=== PATIENT | male | born 1965 | race Caucasian/White ===

== ENCOUNTER 2018-04-29 19:35 | Emergency (ER) | payer OTHER ==
[~2018-04-29] VITALS: Ht 172.7 cm; Wt 90.7 kg
--- OUTSIDE RECORDS SUMMARY | 2018-04-29 19:38 | XMS REPORT | Continuity of Care Document ---
Author Author [facility] Interface Address Unknown Phone Unavailable Problems Problem Status Onset Date Classification Date Reported Comments Source Upper respiratory infection 01/14/2017 Diagnosis 01/15/2017 [facility] Pain in throat 01/14/2017 Diagnosis 01/15/2017 [facility] Feeling feverish 01/14/2017 Diagnosis 01/15/2017 [facility] Generalized aches and pains 01/14/2017 Diagnosis 01/15/2017 [facility] Chill 01/14/2017 Diagnosis 01/15/2017 [facility] Cigarette smoker 01/14/2017 Diagnosis 01/15/2017 [facility] Candidiasis Problem 01/15/2017 [facility] Otitis Media Problem 01/15/2017 [facility] Influenza Due to Influenza Virus, Type B Problem 01/15/2017 [facility] Cellulitis and Abscess of Face Problem 01/15/2017 [facility] Medications Medication Details Route Status Patient Instructions Ordering Provider Order Date Source Amitriptyline Hydrochloride 50 MG Oral Tablet amitriptyline 50 mg tablet Active [facility] Amoxicillin 875 MG Oral Tablet amoxicillin 875 mg tablet Take 1 tablet every 12 hours by oral route as directed for 10 days. Active [facility] atorvastatin 40 MG Oral Tablet atorvastatin 40 mg tablet Active [facility] BD Ultra-Fine Karen Pen [place] 32 gauge x 5/32" BD Ultra- Fine Karen Pen [place] 32 gauge x 5/32" Active [facility] benzonatate 200 MG Oral Capsule benzonatate 200 mg capsule Take 1 capsule 3 times a day by oral route as needed. Active [facility] duloxetine 60 MG Delayed Release Oral Capsule duloxetine 60 mg capsule,delayed release TK 1 C PO D Active [facility] 0.5 ML influenza A virus A/ (H1N1) antigen 0.03 MG/ML / influenza A virus A/ (H3N2) antigen 0.03 MG/ML / influenza B virus B/Servin antigen 0.03 MG/ML / influenza B virus B/ antigen 0.03 MG/ML Prefilled Syringe [Flucelvax Quadrivalent 2565-0298] Flucelvax Quad 5584-9524 (PF) 60 mcg (15 mcg x 4)/0.5 mL IM syringe ADM 0.5ML IM UTD Active [facility] gabapentin 800 MG Oral Tablet gabapentin 800 mg tablet Active [facility] empagliflozin 25 MG Oral Tablet [Jardiance] Jardiance 25 mg tablet Active [facility] Lidocaine Hydrochloride 20 MG/ML Mucous Membrane Topical Solution Lidocaine Viscous 2 % mucosal solution Take 10 mL every 3 hours by oral route as needed. Active [facility] 24 HR Metformin hydrochloride 500 MG Extended Release Oral Tablet metformin ER 500 mg tablet,extended release 24 hr Active [facility] OneTouch Delica Lancets 30 gauge OneTouch Delica Lancets 30 gauge Active [facility] OneTouch Verio strips OneTouch Verio strips Active [facility] Prednisone 20 MG Oral Tablet prednisone 20 mg tablet Take 3 tabs PO QD x 2 days, then take 2 tabs PO QD x 2 days, then take 1 tab PO QD x 2 days. Active [facility] 1.5 ML Insulin Glargine 300 UNT/ML Pen Injector [Toujeo] Toujeo SoloStar 300 unit/mL (1.5 mL) subcutaneous insulin pen INJ 30 UNITS SC QHS Active [facility] Allergies, Adverse Reactions, Alerts Substance Category Reaction Severity Reaction type Status Date Reported Comments Source Immunizations Immunization Date Given Site Status Last Updated Comments Source influenza, unspecified formulation 12/08/2016 completed [facility] Results Order Name Results Value Reference Range Date Interpretation Comments Source RESULT negative 01/14/2017 [facility] SWAB LOCATION Left and Right tonsillar pillars 01/14/2017 [facility] Influenza A negative 01/14/2017 [facility] Influenza B negative 01/14/2017 [facility] Vital Signs Vital Sign Value Date Comments Source Diastolic (mm Hg) 84 01/14/2017 [facility] Height 68 01/14/2017 [facility] Systolic (mm Hg) 120 01/14/2017 [facility] Weight 205 01/14/2017 [facility] Encounters Location Location Details Encounter Type Encounter Number Reason For Visit Attending Provider ADM Date DC Date Status Source [place] - [facility] - [id number]: [address] [place] [address], Ph. [id number] [place] 01/14/2017 [facility] Procedures Procedure Code Date Perfomer Comments Source Cholecystectomy [facility] Appendectomy [facility] Remove Tonsils and Adenoids [address] [facility]
--- OUTSIDE RECORDS SUMMARY | 2018-04-29 19:39 | XMS REPORT | Encounter Summary ---
Author Organization Unknown Address [address] [place] [address] Phone [phone] Reason for Visit Medical Complaint Instructions 1. Upper respiratory infection rapid flu (A+B) benzonatate 200 mg capsule prednisone 20 mg tablet upper respiratory infection (cold): care instructions amoxicillin 875 mg tablet 2. Pain in throat sore throat: care instructions Lidocaine Viscous 2 % mucosal solution rapid strep group A, throat 3. Feeling feverish 4. Generalized aches and pains 5. Chill 6. Cigarette smoker Discussion Note Pt is in NAD; Verbalizes understanding of all instructions with no questions at this time. Plan of Care Patient Instructions Take fluticasone as needed for congestion. [place] one spray in each nostril twice a day. Take a warm, steamy shower, blow your nose thereafter, and spray in each nostril. Tilt your head up for about 10 seconds and breath through your mouth. Do not sniff or snort the medication in or else the medication will go to your throat and not be absorbed appropriately. Gargle and spit viscous lidocaine as needed for sore throat as directed. Take benzonatate for cough as directed. Take prednisone taper as directed with food. If no improvement of symptoms, start antibiotics as directed. Alternate with Ibuprofen and acetaminophen every 4hrs as needed for pain/fever/headache. Proper hydration and rest. Return to work/school if free of fever for 24-hrs. Do not share any utensils/cups, no kissing, recommend hand washing after coughing/sneezing/blowing nose and cover face when you do so Take medications as prescribed. Return to clinic or follow up with your PCP within 2-3 days if symptoms worsen as discussed. I recommend smoking cessation. Reminders Provider Appointments None recorded. Lab Rapid Flu (A+B) 01/14/2017 [facility] Rapid Strep Group a, Throat 01/14/2017 [facility] Referral None recorded. Procedures None recorded. Surgeries None recorded. Imaging None recorded. Medications Name Start Date amitriptyline 50 mg tablet amoxicillin 875 mg tablet Take 1 tablet every 12 hours by oral route as directed for 10 days. atorvastatin 40 mg tablet BD Ultra-Fine Karen Pen [place] 32 gauge x 5/32" benzonatate 200 mg capsule Take 1 capsule 3 times a day by oral route as needed. duloxetine 60 mg capsule,delayed release TK 1 C PO D Flucelvax Quad 4185-1660 (PF) 60 mcg (15 mcg x 4)/0.5 mL IM syringe ADM 0.5ML IM UTD gabapentin 800 mg tablet Jardiance 25 mg tablet Lidocaine Viscous 2 % mucosal solution Take 10 mL every 3 hours by oral route as needed. metformin ER 500 mg tablet,extended release 24 hr OneTouch Delica Lancets 30 gauge OneTouch Verio strips prednisone 20 mg tablet Take 3 tabs PO QD x 2 days, then take 2 tabs PO QD x 2 days, then take 1 tab PO QD x 2 days. Toujeo SoloStar 300 unit/mL (1.5 mL) subcutaneous insulin pen INJ 30 UNITS SC QHS Medications Administered None recorded. Vitals Height Weight BMI Blood Pressure 5 ft 8 in 205 lbs 31.2 kg/m2 120/84 mm[Hg] Lab Results Date Name Specimen Result Interpretation Description Value Range Status Address Rapid Strep Group a, Throat Result negative [facility]: [address] [place] [address] Swab Location Left and Right tonsillar pillars [facility]: [address] [place] [address] Rapid Flu (A+B) Influenza a negative [facility]: [address] [place] [address] Influenza B negative [facility]: [address] [place] [address] Allergies Code Code System Name Reaction Severity Status Onset NKDA Problems Name Status Onset Date Source Candidiasis Active Encounter Otitis Media Active Encounter Influenza Due to Influenza Virus, Type B Active Encounter Cellulitis and Abscess of Face Active Encounter Procedures Date Name Performed by Cholecystectomy Information not available Appendectomy Information not available Remove Tonsils and Adenoids Information not available Vaccine List Vaccine Type influenza, unspecified formulation 12/08/2016 Social History Smoking Status Current Every Day Smoker Past Encounters 01/14/2017 Upper Respiratory Infection; Pain in Throat; Feeling Feverish; Generalized Aches and Pains; Chill; Cigarette Smoker [place], [facility]: [address] [facility], [place] [address], Ph. History of Present Illness [id number] Reported By: Patient HPI: Quality: symptoms worse during the day. Duration: 2 days. Severity: subjective temperature. Context: no ill contacts, no tick/insect bites, no recent travel, no new medications; cigarette smoker. Associated Symptoms: no fever/chills, no headache, no muscle aches, no rash, no lethargy, cough; sore throat, feeling feverish, chills, and body aches. Modifying Factors nothing gives relief Review of Systems:ROS as noted in the HPI Review of Systems Basic Reported By: Patient Physical Exam Adult Basic, Adult Female Complete, Adult Male Complete Reported By: Patient Constitutional: General Appearance: healthy-appearing, well-nourished, well-developed. Level of Distress: NAD. Ambulation: ambulating normally Psychiatric: Mental Status: active and alert. Orientation: to time, to place, to person Mxu-Bfgl-Dnand-Throat: Ears: no lesions on external ear, no outer ear tenderness, EACs clear, TMs clear. Hearing: no hearing loss. Nose: no lesions on external nose, nares patent, no septal deviation, nasal passages clear, no sinus tenderness, nasal discharge--rhinorrhea, post nasal drip. Lips, Teeth, and Gums: no mouth or lip ulcers, no bleeding gums, normal dentition. Oropharynx: moist mucous membranes, no erythema, no exudates, tonsils absent Neck: Lymph Nodes: no cervical LAD Lungs: Respiratory effort: no dyspnea, no tachypnea, no use of accessory muscles, no intercostal retractions. Auscultation: breath sounds normal Cardiovascular: Heart Auscultation: RRR, no murmurs Neurologic: Gait and Station: normal gait, normal station
[2018-04-29] MEDS ORDERED: CLINDAMYCIN PHOS 600 MG/ 4 ML VIAL IM ONE (20:15)
== END 2018-04-29 20:20 | disposition home or self-care (01) ==
LOC: FSED 19:35
DX: L03.113 Cellulitis of right upper limb (principal); F17.210 Nicotine dependence, cigarettes, uncomplicated
CPT/HCPCS: 99282

== ENCOUNTER 2019-08-28 20:17 | Emergency (ER) | payer OTHER ==
[~2019-08-28] VITALS: Ht 172.7 cm; Wt 90.7 kg
[2019-08-28] MEDS ORDERED: CLINDAMYCIN PHOS 900MG/ 50ML 50 ML IV STA (21:27)
[2019-08-28] MEDS ORDERED: KETOROLAC TROMETHAMINE 30 MG/ML VIAL IV STA (21:27)
[2019-08-28 21:41] LABS: BASOPHILS % 0.5 % (0.0-1.0); EOSINOPHILS # (AUTO) 0.1 (0.0-0.4); EOSINOPHILS % 1.5 % (0.0-6.0); HEMATOCRIT 48.3 % (38.2-49.6); HEMOGLOBIN 16.3 g/dL (14.0-18.0); LYMPHOCYTES # (AUTO) 3.5 (1.0-3.2); LYMPHOCYTES % 40.1 % (18.0-39.1); MEAN CORPUSCULAR HEMOGLOBIN 30.6 pg (28-32); MEAN CORPUSCULAR HGB CONC 33.7 g/dL (31-35); MEAN CORPUSCULAR VOLUME 90.6 fL (81-99); MONOCYTES # (AUTO) 0.6 (0.2-0.8); MONOCYTES % 6.4 % (4.4-11.3); NEUTROPHILS # (AUTO) 4.4 (2.1-6.9); NEUTROPHILS % 51.3 % (38.7-80.0); PLATELET COUNT 148 x10e3/uL (140-360); RED BLOOD COUNT 5.33 x10e6/uL (4.3-5.7); RED CELL DISTRIBUTION WIDTH 12.3 % (11.7-14.4)
[2019-08-28 21:45] LABS: AMPHETAMINES SCREEN,URINE NEGATIVE (NEGATIVE); BENZODIAZEPINES SCREEN,URINE NEGATIVE (NEGATIVE); PHENCYCLIDINE SCREEN,URINE NEGATIVE (NEGATIVE)
[2019-08-28 21:59] LABS: ALANINE AMINOTRANSFERASE 13 IU/L (0-55); ALBUMIN 3.8 g/dL (3.5-5.0); ALBUMIN/GLOBULIN RATIO 1.2 (0.8-2.0); ALKALINE PHOSPHATASE 123 IU/L (40-150); ANION GAP 9.7 mmol/L (8-16); BLOOD UREA NITROGEN 8 mg/dL (7-26); BUN/CREATININE RATIO 9 (6-25); CALCIUM 9.6 mg/dL (8.4-10.2); CARBON DIOXIDE 29 mmol/L (22-29); CHLORIDE 100 mmol/L (98-107); CREATININE, SERUM 0.86 mg/dL (0.72-1.25); EST GLOMERULAR FILTRATION RATE > 60 ML/MIN (60-); GLUCOSE 371 mg/dL (74-118); POTASSIUM 4.7 mmol/L (3.5-5.1); SODIUM 134 mmol/L (136-145)
--- NOTE | 2019-08-28 22:11 | Diagnostic Imaging Report ---
Exam: Left foot series, 3 views. Clinical History: Pain and swelling, predominantly in the first toe, no trauma Comparison: None. Findings: 3 views of the left foot. There is normal bone mineralization. Negative for acute, displaced fracture or dislocation. Mild hallux valgus deformity at the first metatarsophalangeal joint. Large anterior and posterior calcaneal enthesophytes. No significant soft tissue swelling. Impression: 1. No acute abnormalities. 2. Mild hallux valgus deformity. 3. Large anterior and posterior calcaneal enthesophytes. Signed by: Dr. Chay Simpson M.D. on 08/28/2019 10:07 PM
--- NOTE | 2019-08-28 22:12 | Diagnostic Imaging Report ---
Exam: Left Ankle Series. History: Swelling and pain, no trauma Comparison: None. DISCUSSION: 3 views of the left ankle. There is normal bone mineralization. No evidence of acute, displaced fracture or dislocation. Ankle mortise is preserved. No lytic or blastic lesion.No osteochondral lesion. No abnormal soft tissue calcification or mass. No significant soft tissue swelling. Large anterior and posterior calcaneal enthesophytes. IMPRESSION: 1. No acute abnormalities. The staff physician below has personally reviewed this exam on the date of dictation. Signed by: Dr. Chay Simpson M.D. on 08/28/2019 10:08 PM
[2019-08-28] MEDS ORDERED: ULTRAM50 MG PO (23:53)
--- NOTE | 2019-08-29 00:04 | Emergency Department Note ---
History of Present Illnes History of Present Illness Chief Complaint: Extremity Trauma/Pain History of Present Illness This is a 54 year old male arrives to the ED complaining of left foot pain and redness. Patient states it has been present for 5 weeks-has been constant but it started getting the run around and decided to come to the ED for further workup.She admits to seeing a sports lawyer as an outpatient. Historian: Patient Arrival Mode: Car Exterminator Termite Required: No Onset (how long ago): week(s) Severity: mild Duration (how long): week(s) Progression: unchanged Chronicity: recurrent Context: Denies trauma/injury Past Medical/Family History Physician Review I have reviewed the patient's past medical and family history. Any updates have been documented here. Past Medical History Recent Fever: No Clinical Suspicion of Infectio: No New/Unexplained Change in Ment: No Past Medical History: Diabetes Past Surgical History: Cholecysctectomy, Appendectomy, T&A Family History Family history of heart diseas: No Other Last Tetanus: UTD Review of Systems Review of Systems Constitutional: Reports no symptoms EENTM: Reports no symptoms Cardiovascular: Reports no symptoms Respiratory: Reports no symptoms Gastrointestinal: Reports no symptoms Genitourinary: Reports no symptoms Musculoskeletal: Reports as per HPI, Reports joint pain Integumentary: Reports no symptoms Neurological: Reports no symptoms Psychological: Reports no symptoms Endocrine: Reports no symptoms Hematological/Lymphatic: Reports no symptoms Physical Exam Related Data Allergies: Coded Allergies: No Known Allergies (Unverified , 04/29/18) Triage Vital Signs Vital Signs Date Time Temp Pulse Resp B/P (MAP) Pulse Ox O2 Delivery O2 Flow Rate FiO2 08/28/19 21:09 98.4 92 18 105/82 98 Vital signs reviewed: Yes Physical Exam CONSTITUTIONAL Constitutional: Present well-developed, Present well-nourished HENT HENT: Present normocephalic, Present atraumatic, Present oropharynx clear/moist, Present nose normal HENT L/R: Present left ext ear normal, Present right ext ear normal EYES Eyes: Reports PERRL, Reports conjunctivae normal NECK Neck: Present ROM normal PULMONARY Pulmonary: Present effort normal, Present breath sounds normal CARDIOVASCULAR Cardiovascular: Present regular rhythm, Present heart sounds normal, Present capillary refill normal, Present normal rate GASTROINTESTINAL Abdominal: Present soft, Present nontender, Present bowel sounds normal GENITOURINARY Genitourinary: Present exam deferred SKIN Skin: Present warm, Present dry MUSCULOSKELETAL Musculoskeletal: Present ROM normal, Present tenderness, Present swelling NEUROLOGICAL Neurological: Present alert, Present oriented x 3, Present no gross motor or sensory deficits PSYCHOLOGICAL Psychological: Present mood/affect normal, Present judgement normal Results Laboratory Result Diagram: 08/28/19212008/28/192120 Laboratory Laboratory Tests Test 08/28/19 21:25 08/28/19 21:21 Urine Opiates Screen Negative (NEGATIVE) Urine Methadone Screen Negative (NEGATIVE) Urine Barbiturates Screen Negative (NEGATIVE) Urine Phencyclidine Screen Negative (NEGATIVE) Urine Amphetamines Screen Negative (NEGATIVE) Urine Methamphetamines Screen Negative (NEGATIVE) Urine Benzodiazepines Screen Negative (NEGATIVE) Urine Cocaine Screen Negative (NEGATIVE) Urine Cannabinoids Screen Negative (NEGATIVE) White Blood Count 8.60 x10e3/uL (4.8-10.8) Red Blood Count 5.33 x10e6/uL (4.3-5.7) Hemoglobin 16.3 g/dL (14.0-18.0) Hematocrit 48.3 % (38.2-49.6) Mean Corpuscular Volume 90.6 fL (81-99) Mean Corpuscular Hemoglobin 30.6 pg (28-32) Mean Corpuscular Hemoglobin Concent 33.7 g/dL (31-35) Red Cell Distribution Width 12.3 % (11.7-14.4) Platelet Count 148 x10e3/uL (140-360) Neutrophils (%) (Auto) 51.3 % (38.7-80.0) Lymphocytes (%) (Auto) 40.1 % (18.0-39.1) Monocytes (%) (Auto) 6.4 % (4.4-11.3) Eosinophils (%) (Auto) 1.5 % (0.0-6.0) Basophils (%) (Auto) 0.5 % (0.0-1.0) Neutrophils # (Auto) 4.4 (2.1-6.9) Lymphocytes # (Auto) 3.5 (1.0-3.2) Monocytes # (Auto) 0.6 (0.2-0.8) Eosinophils # (Auto) 0.1 (0.0-0.4) Basophils # (Auto) 0.0 (0.0-0.1) Absolute Immature Granulocyte (auto 0.02 x10e3/uL (0-0.1) Sodium Level 134 mmol/L (136-145) Potassium Level 4.7 mmol/L (3.5-5.1) Chloride Level 100 mmol/L (98-107) Carbon Dioxide Level 29 mmol/L (22-29) Anion Gap 9.7 mmol/L (8-16) Blood Urea Nitrogen 8 mg/dL (7-26) Creatinine 0.86 mg/dL (0.72-1.25) Estimat Glomerular Filtration Rate > 60 ML/MIN (60-) BUN/Creatinine Ratio 9 (6-25) Glucose Level 371 mg/dL (74-118) Calcium Level 9.6 mg/dL (8.4-10.2) Total Bilirubin 0.6 mg/dL (0.2-1.2) Aspartate Amino Transf (AST/SGOT) 13 IU/L (5-34) Alanine Aminotransferase (ALT/SGPT) 13 IU/L (0-55) Alkaline Phosphatase 123 IU/L (40-150) Total Protein 6.9 g/dL (6.5-8.1) Albumin 3.8 g/dL (3.5-5.0) Globulin 3.1 g/dL (2.3-3.5) Albumin/Globulin Ratio 1.2 (0.8-2.0) Lab results reviewed: Yes Imaging Imaging results reviewed: Yes Impressions Impression: 1. No acute abnormalities. 2. Mild hallux valgus deformity. 3. Large anterior and posterior calcaneal enthesophytes. Assessment & Plan Medical Decision Making MDM 54-year-old well-appearing male arrives the ED with complaints of continued left sided foot and ankle pain. Hallux deformity noted on exam, however, no superimposed cellulitis, no signs of infection, normal pulses. Patient is a diabetic, lab work obtained to ensure no uncontrolled diabetes present possible osteomyelitis. Clinically patient's foot appears normal with no x-ray or exam findings concerning for osteomyelitis. I encouraged patient follow-up with another sports lawyer for further outpatient workup and possible repair of his hallux deformity. Patient expressed understanding. Patient stable for discharge home. Assessment & Plan Final Impression: (1) Hallux hammertoe Depart Disposition: HOME, SELF-CARE Last Vital Signs Date Time Temp Pulse Resp B/P (MAP) Pulse Ox O2 Delivery O2 Flow Rate FiO2 08/28/19 21:09 98.4 92 18 105/82 98 Medications in the ED Clindamycin Phosphate 50 ml @ 50 mls/hr NOW STAT IV ; Start 08/28/19 at 21:27; Stop 08/28/19 at 22:26; Status DC Ketorolac Tromethamine 30 mg ONCE STAT IV ; Start 08/28/19 at 21:27; Stop 08/28/19 at 21:30; Status DC YOUNG YANG DO Aug 29, 2019 00:04
== END 2019-08-29 00:22 | disposition home or self-care (01) ==
LOC: ER 20:17
DX: M79.672 Pain in left foot (principal); M20.12 Hallux valgus (acquired), left foot; M20.42 Other hammer toe(s) (acquired), left foot
CPT/HCPCS: 36415; 73610; 73630; 80053; 80307; 85025; 99284; J1885

== ENCOUNTER → 2019-10-23 | Day surgery (SDC) | payer OTHER ==
[2019-10-19 16:39] LABS: BASOPHILS # (AUTO) 0.1 (0.0-0.1); BASOPHILS % 0.5 % (0.0-1.0); EOSINOPHILS # (AUTO) 0.1 (0.0-0.4); EOSINOPHILS % 1.3 % (0.0-6.0); HEMATOCRIT 48.3 % (38.2-49.6); HEMOGLOBIN 16.6 g/dL (14.0-18.0); LYMPHOCYTES # (AUTO) 3.6 (1.0-3.2); LYMPHOCYTES % 38.1 % (18.0-39.1); MEAN CORPUSCULAR HEMOGLOBIN 30.9 pg (28-32); MEAN CORPUSCULAR HGB CONC 34.4 g/dL (31-35); MEAN CORPUSCULAR VOLUME 89.9 fL (81-99); MONOCYTES # (AUTO) 0.6 (0.2-0.8); MONOCYTES % 6.5 % (4.4-11.3); NEUTROPHILS % 53.4 % (38.7-80.0); PLATELET COUNT 165 x10e3/uL (140-360); RED BLOOD COUNT 5.37 x10e6/uL (4.3-5.7); RED CELL DISTRIBUTION WIDTH 12.2 % (11.7-14.4)
[2019-10-19 16:55] LABS: ANION GAP 14.2 mmol/L (8-16); BLOOD UREA NITROGEN 9 mg/dL (7-26); BUN/CREATININE RATIO 10 (6-25); CALCIUM 9.7 mg/dL (8.4-10.2); CARBON DIOXIDE 27 mmol/L (22-29); CHLORIDE 97 mmol/L (98-107); CREATININE, SERUM 0.94 mg/dL (0.72-1.25); EST GLOMERULAR FILTRATION RATE > 60 ML/MIN (60-); GLUCOSE 339 mg/dL (74-118); POTASSIUM 4.2 mmol/L (3.5-5.1); SODIUM 134 mmol/L (136-145)
--- NOTE | 2019-10-19 17:15 | Diagnostic Imaging Report ---
EXAMINATION: CHEST 2 VIEWS INDICATION: Preop left foot surgery ^[id number] ^[id number] ^PRE-OP COMPARISON: None FINDINGS: PA and lateral views TUBES and LINES: None. LUNGS: Lungs are well inflated. There is no evidence of pneumonia or pulmonary edema. PLEURA: No pleural effusion or pneumothorax. HEART AND MEDIASTINUM: The cardiomediastinal silhouette is unremarkable.. BONES AND SOFT TISSUES: Mild degenerative changes of the spine. There is an anchor in the left humeral head. No focal osseous lesions. Soft tissues are unremarkable. UPPER ABDOMEN: Unremarkable. IMPRESSION: No acute thoracic abnormality. Signed by: Dr. Scout Gonzalez MD on 10/19/2019 5:11 PM
[~2019-10-23] MED LIST: ASPIRIN81 MG PO; ATORVASTATIN CA10 MG PO; BUPIVACAINE HCL 0.5% INJ 30 ML VIAL INJ ONE; CEFAZOLIN SOD 1 GM/NS 50ML 100 ML IV ONE; CYMBALTA30 MG PO; DEXAMETHASONE SOD PHOS INJ 4 MG/ML VIAL ONE; FLOMAX0.4 MG PO; GABAPENTIN800 MG PO; INSULIN REGULAR, HUMAN 100 UNIT/1 ML 3ML VIAL ONE; LIDOCAINE HCL 2% LOCAL INJ 5 ML SDV VIAL INJ ONE; MIDAZOLAM HCL 2 MG/2 ML VIAL ONE; NEOSTIGMINE 1 MG/ML 10ML VIAL ONE; NOVOLOG100 UNIT/1 SC; ONDANSETRON HCL INJ 2MG/ML 2ML 2 MG/ML VIAL ONE; PROPOFOL IV EMULSION 10 MG/ML 20 ML VIAL ONE; SEVOFLURANE INHAL SOLN 250 ML PEN BTL ONE; TRESIBA100 UNIT/1 SQ; ULTRAM50 MG PO
[2019-10-23 12:20] VITALS: BP 125/81
--- NOTE | 2019-12-03 15:13 | Operative Report ---
DATE OF PROCEDURE: 10/23/2019 SURGEON: Camilo Trujillo DPM PREOPERATIVE DIAGNOSIS: Foreign body, deep, left foot. POSTOPERATIVE DIAGNOSIS: Foreign body, deep, left foot. TITLE OF THE OPERATION: Removal of foreign body, deep, left foot. ANESTHESIA: General endotracheal. HEMOSTASIS: Left ankle tourniquet at 250 mmHg. PROCEDURE IN DETAIL: The patient was taken to the operating room in a mildly sedated state, placed on the operating table in supine position. Following induction of general anesthetic, the left lower extremity was elevated to 60 degrees to exsanguinate before inflating the pneumatic ankle tourniquet 250 mmHg to create hemostasis on the left foot. The foot was placed on the operating table prior to performing the following procedure. Procedure #1: Removal of foreign body. An incision was made on the plantar lateral aspect of the left 2nd digit and 2nd metatarsal. This extended all the way down through the skin, subcutaneous tissue, and into the intermetatarsal space. This incision was deepened via sharp and blunt dissection and foreign body was identified and removed from the wound, irrigated with copious amounts of sterile saline solution. Deep wound culture and sensitivity were obtained. After full irrigation, the area was closed with a combination of suture and packing. The area was then dressed with the appropriate mildly compressive dressings. The patient left the operating room, vital signs stable in apparent satisfactory condition, having tolerated both anesthetic and procedure very well. YOLY Alegria/CHELY /[id number]
== END | disposition home or self-care (01) ==
LOC: OR 08:32
PROVIDERS: ATTEND Podiatrist Foot Surgery
DX: M79.5 Residual foreign body in soft tissue (principal); E11.9 Type 2 diabetes mellitus without complications; E78.5 Hyperlipidemia, unspecified; Z79.4 Long term (current) use of insulin; F17.210 Nicotine dependence, cigarettes, uncomplicated; Z79.82 Long term (current) use of aspirin; Z86.73 Personal history of transient ischemic attack (TIA), and cerebral infarction without residual deficits
CPT/HCPCS: 28193; 36415 ×2; 71046; 76000; 80048; 82948; 85025; 87071; 87075; 87205; 93005; J0690; J2001; J2250; J2405; J2704; J2710; U0002; J1100; J1817